=== PATIENT | female | born 1945 | race Caucasian/White ===

== ENCOUNTER 2023-08-12 10:14 | Outpatient (CLI) | payer MEDICARE | END 2023-08-12 10:15 | disposition home or self-care (01) | LOC: CSHMAMMO 10:14 | PROVIDERS: ATTEND Family Medicine | DX: Z12.31 Encounter for screening mammogram for malignant neoplasm of breast (principal); M81.0 Age-related osteoporosis without current pathological fracture; Z78.0 Asymptomatic menopausal state | CPT/HCPCS: 77063; 77067; 77080 ==

== ENCOUNTER 2025-05-08 11:45 | Outpatient (CLI) | payer MEDICARE | END 2025-05-08 11:46 | disposition home or self-care (01) | LOC: CSHMAMMO 11:45 | PROVIDERS: ATTEND Family Medicine | DX: Z12.31 Encounter for screening mammogram for malignant neoplasm of breast (principal) | CPT/HCPCS: 77063; 77067 ==